=== PATIENT | male | born 1975 | race African-American/Black ===

== ENCOUNTER 2018-11-15 19:48 | Emergency (ER) | payer SELFPAY ==
--- NOTE | 2018-11-15 20:14 | ED Physician Documentation ---
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 he has tried OTC cough med and he has had no relief. He is a garbage truck helper. He did not have flu shot. Denies any chest pain. No N/V/D) Last known Well Code/Unknown Code: Unknown - ROS CONST: fever (unknown), sweating, weakness EYES/ENT: sore throat, nasal drainage, nasal congestion CVS/RESP: cough GI/: denies: abdominal pain, problems urinating, vomiting, nausea, diarrhea MS/SKIN/LYMPH: denies: rash NEURO/PSYCH: headache - PAST HX Past History: none Allergies/Adverse Reactions: Allergies Allergy/AdvReac Type Severity Reaction Status Date / Time sulfamethoxazole Allergy Mild Verified 11/15/18 20:40 [From Bactrim] trimethoprim [From Bactrim] Allergy Mild Verified 11/15/18 20:40 Penicillins AdvReac Severe Throat Verified 11/15/18 20:40 Swelling Home Medications: Ambulatory Orders Medication Instructions Recorded NK 11/15/18 - SOCIAL HX Smoking History: non-smoker Alcohol Use: none Drug Use: none - FAMILY HX Family History: No - REVIEWED ASSESSMENTS Nursing Assessment Reviewed: Yes Vitals Reviewed: Yes Progress - Progress Progress: 2109: sleeping quietly in room DG 2146: Discussed results and plan he is agreeable ED Results Lab/Radiology - Radiology Radiology Impressions: PA and lateral chest Clinical history: Productive cough for 2 days. Findings: Examination of the chest in PA and lateral views with no prior films for comparison demonstrates reticular changes with bronchial wall thickening in the perihilar regions and lung bases consistent with bronchitis. Cardiovascular and mediastinal silhouettes are within normal limits. Bony thorax is intact. Impression: 1. Reticular changes and bronchial wall thickening consistent with bronchitis. Electronically signed on Nov 15, 2018 9:29:44 PM LAB TESTER by: Pedro Alcantara General Adult Physical Exam - PHYSICAL EXAM GENERAL APPEARANCE: no distress EENT: eye inspection normal, no signs of dehydration NECK: normal inspection RESPIRATORY: no resp distress, chest non-tender, breath sounds normal CVS: reg rate & rhythm, heart sounds normal ABDOMEN: soft, normal bowel sounds, no distension BACK: normal inspection SKIN: warm/dry, normal color EXTREMITIES: non-tender, normal range of motion, no evidence of injury, no edema NEURO: oriented X3 Discharge Clincal Impression: Bronchitis Comments: 1. Medrol dose pack - as directed start after noon 11.16.2018 2. INCREASE water 3. Tessalon Pearls take 1 by mouth every 12 hours as needed for cough 4. Tylenol or Ibuprofen as directed for pain or fever 5. See PCP in 2-4 days if no improvement 6. Return to ER for any concerns Condition: Stable Disposition: 01 HOME, SELF-CARE Decision to Admit: NO Date of Decison to Admit: 11/15/18 Decision Time: 22:35
[2018-11-15] MEDS ORDERED: 0.9 % SODIUM CHLORIDE 1,000 ML IV ONE (20:32)
--- NOTE | 2018-11-15 21:32 | Diagnostic Imaging Report ---
SERGE MCGEE [facility] [address] [id number] Report Submission Date: Nov 15, 2018 9:29:44 PM ENSEMBLE MEMBER Patient Study Name: RENUKA COREAS Date: Nov 15, 2018 9:01:11 PM ENSEMBLE MEMBER Modality Type: DX Gender: M Description: CHEST 2VIEW : 77 Institution: [facility] Physician: SERGE MCGEE PA and lateral chest Clinical history: Productive cough for 2 days. Findings: Examination of the chest in PA and lateral views with no prior films for comparison demonstrates reticular changes with bronchial wall thickening in the perihilar regions and lung bases consistent with bronchitis. Cardiovascular and mediastinal silhouettes are within normal limits. Bony thorax is intact. Impression: 1. Reticular changes and bronchial wall thickening consistent with bronchitis. Electronically signed on Nov 15, 2018 9:29:44 PM ENSEMBLE MEMBER by: Pedro WADSWORTH
[2018-11-15] MEDS ORDERED: methylPREDNISolone SOD SUCC 125 MG/2 ML VIAL IVP ONE (21:50)
[2018-11-15 22:37] VITALS: BP 147/79
[2018-11-16 10:35] LABS: APPEARANCE,URINE CLEAR (CLEAR); COLOR,URINE YELLOW (YELLOW)
[2018-11-16 10:36] LABS: OCCULT BLOOD,URINE NEGATIVE (NEGATIVE)
[2018-11-16 10:37] LABS: MEAN CORPUSCULAR HEMOGLOBIN 31.7 pg (28.0-34.0); MONOCYTES % 7.9 % (0.0-11.0)
[2018-11-16 10:38] LABS: BASOPHILS % 0.7 (0.0-1.5); EOSINOPHILS % 2.9 % (0.0-6.8); NEUTROPHILS # 6.1 # k/uL (1.4-7.7)
[2018-11-16 10:39] LABS: eGFR (Non-African) > 60
== END 2018-11-15 22:37 | disposition home or self-care (01) ==
LOC: ED 19:48
DX: J40 Bronchitis, not specified as acute or chronic (principal)
CPT/HCPCS: 36415; 71046; 80053; 81002; 85025; 87400; 96374; 99283; 99284; J2930; J7030; S1016